=== PATIENT | female | born 1945 ===

== ENCOUNTER 2024-03-13 07:45 | Inpatient (IN) | payer OTHER ==
[~2024-03-13] VITALS: Ht 152.4 cm; Wt 81.6 kg
[2024-03-13 09:14] LABS: PH,URINE 5.5 (5.0-8.0); URINE APPEARANCE Clear; URINE BILIRRUBIN Negative (NEGATIVE); URINE BLOOD Negative; URINE COLOR Yellow; URINE GLUCOSE Negative (NEGATIVE); URINE LEUKOCYTE Negative; URINE NITRATE Negative; URINE PROTEIN Trace (NEGATIVE); URINE UROBILINOGEN 0.2 E.U./dl
[2024-03-13 09:19] LABS: URINE BACTERIA 52.9 uL (0.0-1933); URINE EPITHELIAL CELLS 27.9 uL (0.0-38.8); URINE RBC 18.3 uL (0.0-20.8); URINE WBC 13.4 uL (0.0-23.2)
[2024-03-13 09:25] LABS: HEMATOCRIT 41.6 % (36.0-45.00); HEMOGLOBIN 13.8 g/dL (12.0-15.00); MEAN CELL VOLUME 82.9 fL (80.00-100.00); MEAN CORPUSCULAR HEMOGLOBIN 27.6 pg (27.00-32.0); MEAN CORPUSCULAR HGB CONC 33.3 g/dl (32.0-36.0); PLATELET COUNT 261 K/uL (150-450); RED BLOOD COUNT 5.02 M/uL (4.00-6.00); RED CELL DISTRIBUTION WIDTH 14.3 % (11.5-14.5)
[2024-03-13] MEDS ORDERED: AMLODIPINE-OLM1 EAC2 (09:40)
[2024-03-13] MEDS ORDERED: ATORVASTATIN CA20 MG (09:40)
[2024-03-13] MEDS ORDERED: TOPROL XL50 M1 (09:40)
[2024-03-13 09:41] LABS: URINE MUCUS MODERATE
[2024-03-13] MEDS ORDERED: MONTELUKAS 10MG (09:41)
[2024-03-13] MEDS ORDERED: ZESTRIL40 M1 (09:41)
[2024-03-13] MEDS ORDERED: LOSARTAN POTAS100 MG (09:41)
[2024-03-13] MEDS ORDERED: ELIQUIS2.5 MG (09:42)
[2024-03-13] MEDS ORDERED: ISOSORBIDE MONO60 MG (09:42)
[2024-03-13] MEDS ORDERED: PROAIR RESPICL90 MCG (09:42)
[2024-03-13 09:43] LABS: PARTIAL THROMBOPLASTIN TIME 27.8 SECONDS (22.0-34.0); PROTHROMBIN TIME 10.5 SECONDS (9.0-11.5)
[2024-03-13 09:57] LABS: ALBUMIN 3.7 gm/dL (3.4-5.0); BILIRUBIN TOTAL 0.93 mg/dL (0.3-1.2); CALCIUM 9.5 mg/dL (8.5-10.1); CREATININE SERUM 1.07 mg/dL (0.55-1.02); GFR 49.72; GLOBULINA 3.5 G/DL (2.4-3.5); POTASSIUM 3.92 mEq/L (3.5-5.1); TOTAL PROTEIN 7.2 gm/dL (6.4-8.2)
[2024-03-20] MEDS ORDERED: CEFAZOLIN SODIUM 1,000 MG in 0.9 % SODIUM CHLORIDE 50 ML IV ONE (09:15)
[2024-03-20] MEDS ORDERED: MONTELUKAST SOD10 MG (10:30)
[2024-03-20] MEDS ORDERED: PANTOPRAZOLE SO40 MG (10:30)
[2024-03-20] MEDS ORDERED: AMLODIPINE BESYL5 MG (10:30)
[2024-03-20] MEDS ORDERED: FUROSEMIDE40 MG (10:30)
[2024-03-20] MEDS ORDERED: EZETIMIBE10 MG (10:30)
[2024-03-20] MEDS ORDERED: FLONASE16 GM (10:30)
[2024-03-20] MEDS ORDERED: SUGAMMADEX SODIUM 200 MG/2 ML VIAL IV ONE (10:45)
[2024-03-20] MEDS ORDERED: MORPHINE SULFATE 4 MG/ML VIAL IV SCH (10:55)
[2024-03-20] MEDS ORDERED: ENOXAPARIN SODIUM 40 MG/0.4 ML SYRINGE SUBCUTANEO SCH (12:00)
[2024-03-20] MEDS ORDERED: hydrALAZINE HCL 10 MG TABLET PO PRN (15:45)
[2024-03-20] MEDS ORDERED: AMLODIPINE BESYLATE 5 MG TABLET PO ONE (15:45)
[2024-03-21] MEDS ORDERED: LOSARTAN POTASSIUM 100 MG TABLET PO SCH (09:00)
[2024-03-21] MEDS ORDERED: PANTOPRAZOLE SODIUM 40 MG TABLET.DR PO STA (15:31)
[2024-03-21] MEDS ORDERED: ACETAMINOPHEN 500 MG GEL..CAP PO PRN (15:45)
[2024-03-21] MEDS ORDERED: AMLODIPINE BESYLATE 10 MG TABLET PO SCH (17:00)
[2024-03-22] MEDS ORDERED: PANTOPRAZOLE SODIUM 40 MG TABLET.DR PO SCH (09:00)
[2024-03-22] MEDS ORDERED: FAMOTIDINE/PF 20 MG/2 ML VIAL IV PUSH SCH (09:00)
[2024-03-22 09:18] LABS: HEMATOCRIT 38.4 % (36.0-45.00); HEMOGLOBIN 12.8 g/dL (12.0-15.00); MEAN CELL VOLUME 82.1 fL (80.00-100.00); MEAN CORPUSCULAR HEMOGLOBIN 27.3 pg (27.00-32.0); MEAN CORPUSCULAR HGB CONC 33.2 g/dl (32.0-36.0); PLATELET COUNT 248 K/uL (150-450); RED BLOOD COUNT 4.68 M/uL (4.00-6.00)
[2024-03-22 10:25] LABS: ALBUMIN 3.3 gm/dL (3.4-5.0); BILIRUBIN TOTAL 1.9 mg/dL (0.3-1.2); CALCIUM 9.4 mg/dL (8.5-10.1); CREATININE SERUM 0.79 mg/dL (0.55-1.02); GFR 70.57; GLOBULINA 3.8 G/DL (2.4-3.5); MAGNESIUM 2.4 mg/dL (1.8-2.4); POTASSIUM 4.28 mEq/L (3.5-5.1); TOTAL PROTEIN 7.1 gm/dL (6.4-8.2)
== END 2024-03-22 11:54 | disposition home or self-care (01) | DRG 328 ==
LOC: O/R 03-20 05:30 → SURH 03-20 07:00
PROVIDERS: Internal Medicine; ADMIT Surgery; ATTEND Surgery
PROC: 8E0W4CZ Robotic Assisted Procedure of Trunk Region, Percutaneous Endoscopic Approach (ICD-10-PCS; 2024-03-20)
PROC: 0BQT4ZZ Repair Diaphragm, Percutaneous Endoscopic Approach (ICD-10-PCS; principal; 2024-03-20 07:00)
DX: K44.9 Diaphragmatic hernia without obstruction or gangrene (principal); I11.9 Hypertensive heart disease without heart failure